=== PATIENT | male | born 1980 ===

== ENCOUNTER 2020-11-26 10:19 | Emergency (ER) | payer SELFPAY | END 2020-11-26 15:00 | disposition left against medical advice (07) | PROVIDERS: Emergency Provider Emergency Medicine | DX: R10.9 Unspecified abdominal pain (principal) ==

== ENCOUNTER 2023-01-16 17:04 | Outpatient (REF) | payer OTHER, SELFPAY | END 2023-01-16 17:05 | disposition home or self-care (01) | LOC: HO.LAB 17:04 | PROVIDERS: Visit Provider Internal Medicine | DX: Z13.89 Encounter for screening for other disorder (principal) | CPT/HCPCS: 0353U ==

== ENCOUNTER 2023-01-20 13:54 | Outpatient (REF) | payer OTHER, SELFPAY ==
[2023-01-21 09:33] LABS: CT PCR NOT DETECTED (Not Detect.); NG PCR NOT DETECTED (Not Detect.)
== END 2023-01-20 13:55 | disposition home or self-care (01) ==
LOC: HO.HMGCLDS 13:54
PROVIDERS: Visit Provider Internal Medicine
DX: Z20.2 Contact with and (suspected) exposure to infections with a predominantly sexual mode of transmission (principal); A59.9 Trichomoniasis, unspecified
CPT/HCPCS: 0353U

== ENCOUNTER 2023-01-30 14:57 | Outpatient (REF) | payer OTHER, SELFPAY ==
[2023-01-31 09:48] LABS: CT PCR NOT DETECTED (Not Detect.); NG PCR NOT DETECTED (Not Detect.)
== END 2023-01-30 14:58 | disposition home or self-care (01) ==
LOC: HO.LAB 14:57
PROVIDERS: Visit Provider Physician Assistant
DX: Z20.2 Contact with and (suspected) exposure to infections with a predominantly sexual mode of transmission (principal)
CPT/HCPCS: 0353U

== ENCOUNTER 2023-11-27 11:38 | Outpatient (AMB) | payer OTHER, SELFPAY ==
[2023-11-27 12:04] VITALS: BP 128/78; PULSE 78; TEMP 36.6; O2SAT 98
--- NOTE | 2023-11-27 12:04 | MHC.OFFWIV ---
Intake Vital Signs 11/27/23 12:04 Height 5 ft 11 in BMI Reason not done Patient refused/unable BP 128/78 Blood Pressure Location Lt brachial Position Sitting Pulse 78 Pulse Source Pulse Oximeter Temp 97.8 F Temp Source Oral Pulse Oximetry (%) 98 Oxygen Delivery Method Room Air Intake Visit Reasons: EP Hemorrhoid [phone] Intake Note: pt is here for hemorrhoids Patient Tobacco Use Status: Current everyday Tobacco user Allergies No Known Allergies Allergy (Verified 11/27/23 12:04) Medication List - Last Reconciled 11/27/23 by Siobhan Casper MD No Known Home Meds Do you need a note to return to daycare/school/sports/work: Yes HPI EP Hemorrhoid [phone] HPI Details Patient is a 43-year-old gentleman came in today to be evaluated for anal pain Patient have a history of hemorrhoids Patient says that off and on he gets flare up Upon further questioning I see that he is also get constipation off and on and have to push to release the stools We talked about laxative and stool softener it is very important that he treat his constipation to avoid flare-ups On examination he has 1 single thrombosed hemorrhoid I am treating him with cortisone suppositories and lidocaine cream locally We discussed the Sitz bath And I have also provided script for donut cushion and letter to be off work with the rest of this week. Patient is to follow with his primary care [facility] Social History Patient Tobacco Use Status: Current everyday Tobacco user Review of Systems Const All systems reviewed & are unremarkable except as noted in HPI and below Physical Exam Vital Signs: Last Vital Signs Temp 97.8 F 11/27/23 12:04 Pulse 78 11/27/23 12:04 BP 128/78 11/27/23 12:04 Pulse Ox 98 11/27/23 12:04 Oxygen Delivery Method Room Air 11/27/23 12:04 Const General: no acute distress Orientation/consciousness: patient oriented x3 Eyes General: appearance normal, both eyes and all related structures Resp Effort & Inspection: normal respiratory effort and able to speak in complete sentences Auscultation: clear to auscultation bilaterally Other: One single thrombosed hemorrhoid external Neuro General: patient oriented x3 Psych Mental Status: mental status grossly normal Assessment & Plan Assessment & Plan (1) Thrombosed external hemorrhoids: Code(s): K64.5 - Perianal venous thrombosis Plan Patient is a 43-year-old gentleman came in today to be evaluated for anal pain Patient have a history of hemorrhoids Patient says that off and on he gets flare up Upon further questioning I see that he is also get constipation off and on and have to push to release the stools We talked about laxative and stool softener it is very important that he treat his constipation to avoid flare-ups On examination he has 1 single thrombosed hemorrhoid I am treating him with cortisone suppositories and lidocaine cream locally We discussed the Sitz bath And I have also provided script for donut cushion and letter to be off work with the rest of this week. Patient is to follow with his primary care Medications: New lidocaine 5% 1 appl topical BID PRN 30 grams 0RF pain [Donut cushion] As directed 1 ea 0RF K64.5 - Perianal venous thrombosis Refilled hydrocortisone acetate (Anusol-HC) 25 mg MT BEDTIME 12 ea 0RF Coding Level of Care Code Est Pt Level 4 (45631) Diagnoses Thrombosed external hemorrhoids K64.5
== END 2023-11-27 12:54 | disposition home or self-care (01) ==
PROVIDERS: Visit Provider Internal Medicine
DX: K64.5 Perianal venous thrombosis (principal)
CPT/HCPCS: 99214

== ENCOUNTER 2024-03-04 12:47 | Outpatient (AMB) | payer SELFPAY ==
--- NOTE | 2024-03-04 12:57 | AM.OFFWIN_ITS ---
Intake Vital Signs 03/04/24 13:14 Height 5 ft 11 in BMI Reason not done Patient refused/unable BP 130/80 Blood Pressure Location Lt brachial Position Sitting Pulse 75 Pulse Source Pulse Oximeter Temp 98.0 F Temp Source Temporal Artery Scan Pulse Oximetry (%) 98 Intake Visit Reasons: EP ?UTI/STD Patient Tobacco Use Status: Current everyday Tobacco user Allergies No Known Allergies Allergy (Verified 11/27/23 12:04) Do you need a note to return to daycare/school/sports/work: Yes HPI HPI Comments History of Present Illness Details Patient is a 43-year-old male was multiple complaints, his 1st complaint is that he feels like he is urinating more frequently and it kang when he urinates. He states a female who he recently had sexual intercourse with told him she had bacterial vaginosis as so we is seeking treatment for that. He also states he has had unprotected sex with several females recently. He denies any unusual discharge or odors or blood in his urine. He is also complaining of a rash in his right groin that he says is actually better right now but usually appears when he gets out of the shower. The knee showed me his back which is covered in a rash that he says comes out when he gets really warm. He denies any itchiness or fevers. [facility] Social History Patient Tobacco Use Status: Current everyday Tobacco user Review of Systems Const All systems reviewed & are unremarkable except as noted in HPI and below Physical Exam Vital Signs: Last Vital Signs Temp 98.0 F 03/04/24 13:14 Pulse 75 03/04/24 13:14 BP 130/80 03/04/24 13:14 Pulse Ox 98 03/04/24 13:14 Const General: cooperative, healthy appearing, comfortable, no acute distress and well developed Orientation/consciousness: patient oriented x3 Limitations: no limitations HEENT Head: Yes normal to inspection Eyes General: appearance normal, both eyes and all related structures Neck Neck: Yes normal visual inspection and Yes full ROM Resp Effort & Inspection: normal respiratory effort and able to speak in complete sentences Skin Other: No rash noted on the right groin. Large, macular flat white rash covering almost the entire back. Neuro General: patient oriented x3 Extrem General: Yes normal to inspection Assessment & Plan Assessment & Plan (1) Unprotected sexual intercourse: Code(s): Z72.51 - High risk heterosexual behavior Plan: UA negative for infection Sent CT NG PCR testing Will treat for bacterial vaginosis with metronidazole MADISON Brown present for exam as seat mender (2) Tinea versicolor: Code(s): B36.0 - Pityriasis versicolor Plan: Sent prescription for terbinafine cream Plan See above Orders: Orders CT NG by PCR Today Z72.51 - High risk heterosexual behavior Medications: New metronidazole 500 mg PO Q12H 14 tabs 0RF terbinafine HCl 1% 1 appl topical DAILY 21 days 30 grams 1RF Coding Level of Care Code New Pt Level 4 (94415) Diagnoses Unprotected sexual intercourse Z72.51 Tinea versicolor B36.0
[2024-03-04 13:14] VITALS: BP 130/80; PULSE 75; TEMP 36.7; O2SAT 98
== END 2024-03-04 13:34 | disposition home or self-care (01) ==
PROVIDERS: Visit Provider Physician Assistant
DX: Z72.51 High risk heterosexual behavior (principal); B36.0 Pityriasis versicolor
CPT/HCPCS: 99204

== ENCOUNTER 2024-03-04 13:17 | Outpatient (REF) | payer SELFPAY ==
[2024-03-04 18:06] LABS: CT PCR NOT DETECTED (Not Detect.); NG PCR NOT DETECTED (Not Detect.)
== END 2024-03-04 13:18 | disposition home or self-care (01) ==
LOC: HO.LAB 13:17
PROVIDERS: Visit Provider Physician Assistant
DX: Z72.51 High risk heterosexual behavior (principal)
CPT/HCPCS: 87491; 87591